=== PATIENT | female | born 2000 | race Caucasian/White ===

== ENCOUNTER 2020-06-05 07:36 | Emergency (ER) | payer BC ==
[~2020-06-05] VITALS: Ht 177.8 cm; Wt 84.1 kg
[2020-06-05 07:41] VITALS: BP 121/84
--- NOTE | 2020-06-05 08:13 | NUR ---
TO DIANE FROM LOBBY
--- NOTE | 2020-06-05 08:15 | NUR ---
Pt brought back from triage with chief complaint of right ear pain with draingage starting at 3 am this morning, pt reports pain intermittent since last night. Seen at last week, strep negative, given abx but did not take.
--- NOTE | 2020-06-05 09:00 | NUR ---
report from rachel padilla No new finding with assessment Updated on estimated poc (awaiting d/c paperwork)
--- NOTE | 2020-06-05 09:00 | NUR ---
Report to John PEREZ
--- NOTE | 2020-06-05 10:10 | NUR ---
EDGAR RN: ASSUMED CARE FOR DC ONLY. Patient/Caregiver given discharge instructions and they have confirmed that they understand the instructions. Patient ambulatory with steady gait.
== END 2020-06-05 10:12 | disposition home or self-care (01) ==
LOC: ED 08:36
DX: H65.02 Acute serous otitis media, left ear (principal); B34.9 Viral infection, unspecified; F17.200 Nicotine dependence, unspecified, uncomplicated
CPT/HCPCS: 71045; 99283